=== PATIENT | male | born 2000 | race Caucasian/White ===

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

== ENCOUNTER 2023-03-02 14:33 | Emergency (ER) | payer OTHER ==
[2023-03-02 14:50] VITALS: BP 110/68; PULSE 68; RESP 18; TEMP 98.1; BMI 25.9
== END 2023-03-02 16:54 | disposition home or self-care (01) ==
LOC: JER 14:33
DX: S43.005A Unspecified dislocation of left shoulder joint, initial encounter (principal); X50.0XXA Overexertion from strenuous movement or load, initial encounter; Y99.0 Civilian activity done for income or pay
CPT/HCPCS: 73030-TC-LT-FY; 99283-25